=== PATIENT | female | born 1980 | race American Indian/Alaskan Native ===

== ENCOUNTER 2016-09-22 10:32 | Inpatient (IN) | payer MEDICAID ==
[2016-09-22] MEDS ORDERED: BICITRA PO ONE (11:45)
[2016-09-22] MEDS ORDERED: PEPCID IV ONE (11:45)
[2016-09-22] MEDS ORDERED: REGLAN IV ONE (11:45)
[2016-09-22] MEDS ORDERED: PITOCin/NS 20 UNIT/1000ML DRIP 1,000 ML IV NR (12:00)
--- NOTE | 2016-09-22 12:35 | History and Physical Report ---
History of Present Illness Date of examination: 09/22/16 Date of admission: 09/22/16 10:32 Chief complaint: Repeat C Section History of present illness: Pt is a 36yo BF EDC 10/05/16; EGA 38 1/7weeks presents from [facility] for a repeat C Section due to Preeclampsia. She was seen at [facility] today with BP's 136/ 100 and repeat of 142/80. She has a history of Preeclampsia and Previous C Section x 3. She [facility] at [facility] [place] [facility] since 17 weeks and course has been complicated by AMA and Morbid Obesity. records are available but GBS is unknown. Past History Past Medical History: other (Morbid Obesity) Past Surgical History: section (x3) Family/Genetic History: diabetes, hypertension, stroke Social history: no significant social history, - Obstetrical History Expected Date of Delivery: 10/05/16 Actual Gestation: 38 Week(s) 1 Day(s) : 4 Medications and Allergies Allergies Allergy/AdvReac Type Severity Reaction Status Date / Time No Known Allergies Allergy Verified 08/29/16 11:15 Home Medications Medication Instructions Recorded Confirmed Last Taken Type Aspirin [Aspirin BABY CHEW TAB] 81 mg PO QDAY 08/29/16 08/29/16 08/29/16 History Vit No.130/Iron/FA 1 each PO QDAY 08/29/16 08/29/16 08/29/16 History [ Tablet] Ferrous Sulfate [Feosol 325 MG tab] 325 mg PO BID #60 tablet 09/22/16 Unknown Rx HYDROcodone/APAP 5-325 [[place] 1 each PO Q6HR PRN #30 tablet 09/22/16 Unknown Rx 5/325] Ibuprofen [Motrin] 800 mg PO Q8HR PRN #30 tablet 09/22/16 Unknown Rx Vit W-Ca,Fe,FA(<1 mg) 1 each PO DAILY #30 tablet 09/22/16 Unknown Rx [ Vitamins] Active Meds: Active Medications Lactated Ringer's (Lactated Ringers) 1,000 mls @ 2,250 mls/hr IV PREOP NR Stop: 09/23/16 12:27 Oxytocin/Sodium Chloride (Pitocin/Ns 20 Unit/1000ml Drip) 1,000 mls @ 0 mls/hr IV TITR NR PRN Reason: Per Protocol Stop: 09/22/16 23:59 Review of Systems All systems: negative - Vital Signs Vital signs: Vital Signs Pulse Pulse Ox 77 100 09/22/16 11:42 09/22/16 11:42 Temp Pulse Resp BP Pulse Ox 97.3 F L 82 20 129/70 99 09/22/16 11:47 09/22/16 12:27 09/22/16 11:47 09/22/16 12:19 09/22/16 12:27 - Physical Exam Breasts: Positive: deferred Cardiovascular: Regular rate Lungs: Positive: Clear to auscultation Abdomen: Positive: normal appearance, soft Genitourinary (Female): Positive: normal external genitalia Uterus: Positive: enlarged Extremities: Positive: normal - Obstetrical FHR: category 1 Uterine Contraction Monitor Mode: External Results Result Diagrams: 09/22/16 13:40 All other labs normal. Ultrasound: report reviewed Assessment and Plan - Patient Problems (1) Previous delivery affecting Diagnosis Date: 09/22/16 Current Visit: Yes Status: Acute (2) Pre-eclampsia Diagnosis Date: 09/22/16 Current Visit: Yes Status: Acute (3) 38 weeks gestation of Diagnosis Date: 09/22/16 Current Visit: Yes Status: Acute Plan to address problem: A: IUP @ 38 1/7 weeks Preeclampsia Previous C Section x 3 Morbid Obesity P: Admit to L&D for Repeat C Section #4 Obtain PIH labs
--- NOTE | 2016-09-22 12:51 | Anesthesia Consultation ---
Anesthesia Consult and Med Hx Date of service: 09/22/16 - Airway Anesthetic Teeth Evaluation: Good ROM Head & Neck: Adequate Mental/Hyoid Distance: Adequate Mallampati Class: Class II Intubation Access Assessment: Probably Good - Pulmonary Exam CTA: Yes - Cardiac Exam Cardiac Exam: RRR - Pre-Operative Health Status ASA Pre-Surgery Classification: ASA3, Emergency Proposed Anesthetic Plan: Epidural, Spinal - Pulmonary Hx Asthma: No COPD: No Hx Pneumonia: No - Cardiovascular System Hx Hypertension: Yes (PIH) - Central Nervous System Hx Seizures: No Hx Psychiatric Problems: No - Endocrine Hx Renal Disease: No Hx End Stage Renal Disease: No Hx Hypothyroidism: No Hx Hyperthyroidism: No - Hematic Hx Anemia: No Hx Sickle Cell Disease: No - Other Systems Hx Alcohol Use: No Hx Obesity: Yes (morbid)
--- NOTE | 2016-09-22 12:52 | Anesthesia Day of Surgery ---
Anesthesia Day of Surgery - Day of Surgery Patient Examined: Yes Patient H&P Reviewed: Yes Patient is NPO: (FSP)
[2016-09-22 13:49] LABS: Basophils % (Auto) 0.9 % (0.0-1.8); Eosinophils % (Auto) 1.2 % (0.0-4.3); Hematocrit 36.9 % (30.3-42.9); Hemoglobin 12.2 gm/dl (10.1-14.3); Mean Corpuscular HGB Conc 33 % (30-34); Mean Corpuscular Hemoglobin 28 pg (28-32); Mean Corpuscular Volume 83 fl (79-97); Platelet Count 188 K/mm3 (140-440); Red Blood Count 4.43 M/mm3 (3.65-5.03); Red Cell Distribution Width 14.5 % (13.2-15.2); White Blood Count 12.4 K/mm3 (4.5-11.0)
[2016-09-22] MEDS ORDERED: ANCEF/STERILE WATER 2 GM/20 ML 20 ML IV NR (15:00)
[2016-09-22] MEDS ORDERED: TORADOL ONE (15:15)
[2016-09-22] MEDS: LACTATED RINGERS 1,000 ML IV NR ×2 (15:19→15:20)
[2016-09-22] MEDS ORDERED: WATER FOR IRRIG STERILE IR ONE (15:35)
[2016-09-22] MEDS ORDERED: ANCEF/STERILE WATER 2 GM/20 ML IV ONE (15:35)
[2016-09-22] MEDS ORDERED: NACL 0.9% IR ONE (15:35)
[2016-09-22] MEDS ORDERED: MORPHINE ONE (15:38)
[2016-09-22] MEDS ORDERED: XYLOCAINE MPF 2% ONE (15:38)
[2016-09-22] MEDS ORDERED: PHENERGAN PO PRN (16:00)
[2016-09-22] MEDS ORDERED: DILAUDID IV PRN ×2 (16:00)
[2016-09-22] MEDS ORDERED: PHENERGAN PR PRN (16:00)
[2016-09-22] MEDS ORDERED: NARCAN 0.4 MG/1 ML IV PRN ×2 (16:00→16:38)
[2016-09-22] MEDS ORDERED: ZOFRAN IV PRN (16:00)
[2016-09-22] MEDS ORDERED: LACTATED RINGERS 1,000 ML ONE (16:21)
--- NOTE | 2016-09-22 16:35 | Operative Report ---
Operative Report Operative Report: Date of procedure: 09/22/2016 Pre-operative diagnosis: 1. Intrauterine at 38-1/7 weeks 2. Previous section 3 3. Preeclampsia 4. Morbid obesity Post-operative diagnosis: Same Procedure name(s): Repeat low transverse section Surgeon: Kip Sanford MD Rehab Director: None Anesthesia: Spinal anesthesia by Dr. Whitehead EBL: 700 mL's Findings: A 3194 g male infant Apgars 8 at 1 minute 9 at 5 minutes. Clear amniotic fluid. Normal uterus. Normal tubes and ovaries bilaterally Procedure: After the patient was prepped and draped in usual sterile fashion, and after satisfactory level of epidural anesthesia was obtained, the skin knife was used to make a transverse skin incision through the previous skin scar. The incision was excised down to layer of the fascia, which was nicked in the midline and extended laterally using the Bovie cautery. The rectus muscles were dissected off the rectus fascia both superiorly and inferiorly. The rectus bellies in the midline, and the peritoneum was entered under direct visualization. The peritoneal incision was extended superiorly and inferiorly. A bladder flap was created and the bladder blade was then placed. The uterus was scored in a curvilinear linear fashion, entered in the midline revealing clear amniotic fluid. The 's head was delivered onto the surgical field, and the oropharynx and nasopharynx were bulb suctioned. The rest of the infant's body was delivered, cord was doubly clamped and cut and the was handed to the waiting respiratory team. The placenta was manually removed from the uterus, and the uterus removed from its normal anatomical position. After gentle uterine lavage, the incision was inspected and found to be without extensions. It was then closed in 2 layers using 0 Vicryl suture in a running interlocking fashion, the second layer imbricating the first. After good hemostasis was achieved, copious amounts or irrigation was performed, and the gutters were suctioned free of blood and blood clots. The Tisseel sealant was sprayed across the uterine incision. The uterus was then returned to its normal anatomical position, and after excellent hemostasis assured, the peritoneum was reapproximated using 3-0 Vicryl suture in a running interlocking fashion, and then the rectus muscles were reapproximated using 3-0 Vicryl suture in a [id number] configuration. The fascia was then reapproximated using 0 Vicryl suture in running interlocking fashion. The subcutaneous layer was made hemostatic using Bovie cautery, the Tisseel sealant was sprayed across the fascial incision and the skin edges reapproximated using 4-0 Vicryl suture in a subcuticular fashion. Patient tolerated the procedure well was transported to recovery in stable condition.
[2016-09-22] MEDS ORDERED: SENOKOT PO PRN (16:38)
[2016-09-22] MEDS ORDERED: MYLICON PO PRN (16:38)
[2016-09-22] MEDS ORDERED: TYLENOL PO PRN (16:38)
[2016-09-22] MEDS ORDERED: NORCO 5/325 PO PRN (16:38)
[2016-09-22] MEDS ORDERED: LANSINOH TP PRN (16:38)
[2016-09-22] MEDS ORDERED: TUCKS PAD TP PRN (16:38)
[2016-09-22] MEDS ORDERED: MILK OF MAGNESIA PO PRN (16:38)
--- NOTE | 2016-09-22 16:45 | Post Anesthesia Evaluation ---
- Post Anesthesia Evaluation Patient Participated: Yes Airway Patent: Yes Stable Respiratory Function: Yes Temp > 96.8F: Yes Pain Manageable: Yes Adequeate Hydration: Yes Anesthesia Complications: No Block Receding Appropriately: Yes
[2016-09-22] MEDS ORDERED: SODIUM CHLORIDE FLUSH SYRINGE 10 ML IV SCH (17:00)
[2016-09-22] MEDS ORDERED: D5LR 1,000 ML IV SCH (17:00)
[2016-09-22] MEDS ORDERED: PITOCin/NS 20 UNIT/1000ML DRIP 1,000 ML IV SCH (17:00)
[2016-09-22] MEDS ORDERED: MAGNESIUM SULFATE 40GM/1000ML 1,000 ML IV SCH (18:00)
[2016-09-22] MEDS: TORADOL IV PRN (19:48)
[2016-09-22] MEDS: BENADRYL IV PRN (20:46)
[2016-09-22] MEDS: ANCEF/NS 1 GM/50 ML 50 ML IV SCH (23:41)
[2016-09-23] MEDS: TORADOL IV PRN ×3 (02:36→15:00)
[2016-09-23] MEDS: BENADRYL IV PRN ×3 (02:36→21:59)
[2016-09-23] MEDS: PERCOCET 5/325 PO PRN ×2 (05:35→21:54)
[2016-09-23 05:52] LABS: Hematocrit 33.8 % (30.3-42.9); Hemoglobin 11.3 gm/dl (10.1-14.3)
[2016-09-23] MEDS: ANCEF/NS 1 GM/50 ML 50 ML IV SCH (08:00)
--- NOTE | 2016-09-23 09:35 | Progress Note ---
Assessment and Plan A: PPD #1 -stable P: Continued post op care Subjective - Subjective Date of service: 09/23/16 Principal diagnosis: Repeat , HTN Patient reports: appetite normal, pain well controlled [place]: doing well Objective - Vital Signs Latest vital signs: Vital Signs Temp Pulse Pulse Resp BP BP BP 09/23/16 08:14 97.7 F 84 20 112/63 09/23/16 06:58 98.4 F 68 18 120/68 09/23/16 04:45 98.6 F 72 20 112/64 09/23/16 02:30 98.7 F 81 18 115/59 09/23/16 00:40 98.8 F 62 18 114/72 09/22/16 22:30 98 F 74 20 124/75 09/22/16 20:25 98.8 F 77 18 120/70 09/22/16 20:00 98.8 F 77 18 120/70 09/22/16 18:30 98.9 F 61 20 135/77 09/22/16 17:38 65 21 121/65 09/22/16 17:25 67 21 117/73 09/22/16 17:10 64 16 117/62 09/22/16 16:55 63 21 115/62 09/22/16 16:40 69 22 120/73 09/22/16 16:36 72 20 113/65 09/22/16 16:30 67 21 120/62 09/22/16 16:27 68 20 116/61 09/22/16 15:02 84 09/22/16 14:57 75 09/22/16 14:52 82 09/22/16 14:49 75 129/68 09/22/16 14:47 74 09/22/16 14:42 72 09/22/16 14:37 72 09/22/16 14:32 74 09/22/16 14:27 76 09/22/16 14:22 74 09/22/16 14:19 71 123/61 09/22/16 14:17 74 09/22/16 14:12 81 09/22/16 14:09 78 123/62 09/22/16 14:07 69 09/22/16 14:02 78 09/22/16 13:57 83 09/22/16 13:52 09/22/16 13:37 75 09/22/16 13:32 76 09/22/16 13:27 72 09/22/16 13:22 72 09/22/16 13:17 79 09/22/16 13:12 66 09/22/16 13:07 86 09/22/16 13:02 76 09/22/16 12:57 85 09/22/16 12:52 77 09/22/16 12:51 76 135/67 09/22/16 12:47 80 09/22/16 12:42 77 09/22/16 12:37 83 09/22/16 12:32 84 09/22/16 12:27 82 09/22/16 12:19 75 129/70 09/22/16 12:17 71 09/22/16 12:12 78 09/22/16 12:07 83 09/22/16 12:02 77 09/22/16 11:57 80 09/22/16 11:52 73 09/22/16 11:48 73 134/87 09/22/16 11:47 97.3 F L 83 77 20 134/87 09/22/16 11:42 77 Pulse Ox 09/23/16 08:14 09/23/16 06:58 09/23/16 04:45 09/23/16 02:30 09/23/16 00:40 09/22/16 22:30 09/22/16 20:25 09/22/16 20:00 09/22/16 18:30 09/22/16 17:38 98 09/22/16 17:25 98 09/22/16 17:10 98 09/22/16 16:55 97 09/22/16 16:40 97 09/22/16 16:36 97 09/22/16 16:30 97 09/22/16 16:27 97 09/22/16 15:02 98 09/22/16 14:57 98 09/22/16 14:52 97 09/22/16 14:49 92 09/22/16 14:47 99 09/22/16 14:42 98 09/22/16 14:37 97 09/22/16 14:32 98 09/22/16 14:27 98 09/22/16 14:22 97 09/22/16 14:19 09/22/16 14:17 97 09/22/16 14:12 98 09/22/16 14:09 09/22/16 14:07 97 09/22/16 14:02 97 09/22/16 13:57 97 09/22/16 13:52 81 L 09/22/16 13:37 99 09/22/16 13:32 99 09/22/16 13:27 98 09/22/16 13:22 99 09/22/16 13:17 99 09/22/16 13:12 98 09/22/16 13:07 100 09/22/16 13:02 99 09/22/16 12:57 98 09/22/16 12:52 99 09/22/16 12:51 09/22/16 12:47 99 09/22/16 12:42 99 09/22/16 12:37 99 09/22/16 12:32 98 09/22/16 12:27 99 09/22/16 12:19 09/22/16 12:17 99 09/22/16 12:12 99 09/22/16 12:07 99 09/22/16 12:02 99 09/22/16 11:57 99 09/22/16 11:52 99 09/22/16 11:48 09/22/16 11:47 99 09/22/16 11:42 100 Intake and Output 09/22/16 09/23/16 09/23/16 22:59 06:59 14:59 Intake Total 2555 2130 600 Output Total 1100 2200 800 Balance 1455 -70 -200 Intake: IV 2075 1050 Ancef/Ns 1 gm/50 ml 50 ml 50 @ 100 mls/hr IV Q8H EILEEN Rx#:[id number] D5lr 1,000 ml @ 125 mls/ 150 hr IV DIRECT EILEEN Rx#: [id number] Magnesium Sulfate 40Gm/ 100 400 1000ML 1,000 ml @ 2 GM/HR 50 mls/hr IV DIRECT EILEEN Rx#:[id number] PITOCin/NS 20 UNIT/1000ML 475 450 DRIP 1,000 ML @ 250 mls/ hr IV TITR EILEEN Rx#: [id number] Oral 240 Intake, Free Water 480 1080 360 Output: Urine 1100 2200 800 Indwelling Catheter 700 2200 800 Other: Total, Intake Amount 240 Total, Output Amount 700 1400 800 Voiding Method Indwelling Catheter Indwelling Catheter - Exam Breasts: Present: deferred Cardiovascular: Present: Regular rate Lungs: Present: Clear to auscultation Abdomen: Present: normal appearance Vulva: both: normal Uterus: Present: fundal height below umbilicus Extremities: Present: normal Deep Tendon Reflex Grade: Normal +2 Incision: Present: dressed - Labs Labs: Abnormal lab results 09/22/16 Range/Units 13:40 WBC 12.4 H (4.5-11.0) K/mm3 Seg Neutrophils % 73.0 H (40.0-70.0) % Seg Neutrophils # 9.0 H (1.8-7.7) K/mm3
[2016-09-23] MEDS: FEOSOL PO SCH (09:41)
[2016-09-23] MEDS: PRENATAL VITAMIN PO SCH (09:42)
--- NOTE | 2016-09-23 14:29 | Progress Note ---
Subjective Date of service: 09/23/16 Principal diagnosis: Repeat , HTN Interval history: Patient is comfortable. Pain is well controlled with pain meds. Ambulated well. No residual neurological deficit. No anesthesia complications Objective - Constitutional Vitals: Vital Signs - 12hr 09/23/16 09/23/16 09/23/16 02:30 04:45 06:58 Temperature 98.7 F 98.6 F 98.4 F Pulse Rate [ 81 72 68 From Monitor] Respiratory 18 20 18 Rate Blood Pressure 115/59 112/64 120/68 [Left Arm] 09/23/16 09/23/16 09/23/16 08:00 08:14 13:33 Temperature 97.7 F 98.8 F Pulse Rate [ 84 86 From Monitor] Respiratory 20 20 20 Rate Blood Pressure 112/63 118/70 [Left Arm] - Labs CBC & Chem 7: 09/23/16 05:35
[2016-09-23] MEDS ORDERED: BOOSTRIX IM ONE (16:41)
[2016-09-23] MEDS ORDERED: M-M-R II VACCINE SUB-Q ONE (17:00)
[2016-09-23] MEDS: MOTRIN PO PRN (21:54)
[2016-09-24] MEDS: MOTRIN PO PRN (04:52)
[2016-09-24] MEDS: PERCOCET 5/325 PO PRN ×2 (04:54→12:05)
--- NOTE | 2016-09-24 11:52 | Progress Note ---
Assessment and Plan A; POD# 2 P: Discharge home today. Subjective - Subjective Date of service: 09/24/16 Principal diagnosis: Repeat , HTN Patient reports: appetite normal, pain well controlled : doing well Objective - Vital Signs Latest vital signs: Vital Signs Temp Pulse Resp BP 09/24/16 09:00 97.9 F 70 22 147/83 09/24/16 04:30 98.1 F 71 20 140/88 09/24/16 00:35 97.9 F 82 20 135/89 09/23/16 21:15 98.2 F 90 20 144/87 09/23/16 16:00 98.2 F 69 20 127/64 09/23/16 15:00 20 09/23/16 13:33 98.8 F 86 20 118/70 Intake and Output 09/23/16 09/24/16 09/24/16 22:59 06:59 14:59 Intake Total 600 240 680 Output Total 1400 350 Balance -800 -110 680 Intake: Oral 120 120 680 Intake, Free Water 480 120 Output: Urine 1400 350 Indwelling Catheter 0 Void 1400 350 Other: Total, Intake Amount 120 120 680 Total, Output Amount 200 150 Voiding Method Toilet Toilet # Voids Indwelling Catheter 0 Void 3 1 1 # Bowel Movements 1 - Exam Breasts: Present: deferred Cardiovascular: Present: Regular rate Abdomen: Present: normal appearance Vulva: both: normal Uterus: Present: fundal height below umbilicus Extremities: Present: normal Deep Tendon Reflex Grade: Normal +2 Incision: Present: intact
--- NOTE | 2016-09-24 11:56 | Discharge Summary ---
Providers - Providers Date of Admission: 09/22/16 10:32 Date of discharge: 09/24/16 Attending physician: RUTH PARISI MD Primary care physician: RUTH PARISI MD Hospitalization Reason for admission: section, other (preeclampsia) Procedure: section Episiotomy: none Laceration: none Incision: intact Other procedures: none complications: none Discharge diagnosis: IUP at term delivered baby: male Condition at discharge: Good Disposition: DISCHARGED TO HOME OR SELFCARE Plan - Discharge Medications Prescriptions: Ferrous Sulfate [Feosol 325 MG tab] 325 mg PO BID #60 tablet HYDROcodone/APAP 5-325 [[place] 5/325] 1 each PO Q6HR PRN #30 tablet PRN Reason: Pain Ibuprofen [Motrin] 800 mg PO Q8HR PRN #30 tablet PRN Reason: Moder Pain Unrelieved By [place] Vit W-Ca,Fe,FA(<1 mg) [ Vitamins] 1 each PO DAILY #30 tablet - Provider Discharge Summary Activity: routine, no sex for 6 weeks, no heavy lifting 4 weeks, no strenuous exercise Diet: routine Instructions: routine Additional instructions: [] Smoking cessation referral if applicable(refer to patient education folder for contact #) [] Refer to [facility] Booklet Call your doctor immediately for: * Fever > 100.5 * Heavy vaginal bleeding ( >1 pad per hour) * Severe persistent headache * Shortness of breath * Reddened, hot, painful area to leg or breast * Drainage or odor from incision. * Keep incision clean and dry at all times and follow doctor's instructions regarding bathing/showering - Follow up plan Follow up: [facility] [Provider Group] - 7 Days
[2016-09-24] MEDS: PRENATAL VITAMIN PO SCH (12:44)
[2016-09-24] MEDS: FEOSOL PO SCH (12:45)
[2016-09-24 14:09] VITALS: BP 152/82
== END 2016-09-24 15:15 | disposition home or self-care (01) | DRG 765 ==
LOC: APU 10:32 → OB 18:06
PROVIDERS: ADMIT Obstetrics & Gynecology; ATTEND Obstetrics & Gynecology
PROC: 10D00Z1 Extraction of Products of Conception, Low, Open Approach (ICD-10-PCS; principal; 2016-09-22)
DX: O11.4 Pre-existing hypertension with pre-eclampsia, complicating childbirth (principal); Z68.41 Body mass index [BMI] 40.0-44.9, adult; O34.219 Maternal care for unspecified type scar from previous cesarean delivery; O99.214 Obesity complicating childbirth; E66.01 Morbid (severe) obesity due to excess calories; Z3A.38 38 weeks gestation of pregnancy; Z37.0 Single live birth
CPT/HCPCS: 36415; 85014; 85018; 85025; 86850; 86900; 86901; J0690; J1200; J1885; J2270; J2590; J2765; J3475; J7120; J7121

== ENCOUNTER 2021-03-12 23:39 | Emergency (ER) | payer MEDICAID ==
[2021-03-13 00:35] LABS: Basophils # (Auto) 0.1 K/mm3 (0.0-0.1); Basophils % (Auto) 0.7 % (0.0-1.8); Eosinophils # (Auto) 0.4 K/mm3 (0.0-0.4); Eosinophils % (Auto) 2.5 % (0.0-4.3); Hematocrit 41.5 % (30.3-42.9); Hemoglobin 13.5 gm/dl (10.1-14.3); Lymphocytes # (Auto) 3.2 K/mm3 (1.2-5.4); Lymphocytes % (Auto) 19.5 % (13.4-35.0); Mean Corpuscular HGB Conc 33 % (30-34); Mean Corpuscular Volume 83 fl (79-97); Monocytes # (Auto) 0.9 K/mm3 (0.0-0.8); Monocytes % (Auto) 5.3 % (0.0-7.3); Platelet Count 253 K/mm3 (140-440); Red Blood Count 5.01 M/mm3 (3.65-5.03); Red Cell Distribution Width 15.4 % (13.2-15.2)
[2021-03-13 00:56] LABS: Bacteria,Urine 2+ /HPF (Negative); Bilirubin,Urine NEG (Negative); Blood,Urine LG (Negative); Color,Urine Amber (Yellow); Mucus,Urine FEW /HPF; Urobilinogen,Urine < 2.0 mg/dL (<2.0)
[2021-03-13 00:57] LABS: Alanine Aminotransferase 10 units/L (7-56); Albumin 4.1 g/dL (3.9-5); Blood Urea Nitrogen 7 mg/dL (7-17); Calcium 9.1 mg/dL (8.4-10.2); Hemolysis Index 4
[2021-03-13 00:58] LABS: WBC,Urine > 182.0 /HPF (0.0-6.0)
[2021-03-13 00:59] LABS: BUN/Creatinine Ratio 10
[2021-03-13] MEDS ORDERED: SODIUM CHLORIDE 0.9% 1000 ML 1,000 ML IV ONE (02:27)
[2021-03-13] MEDS ORDERED: KETOROLAC 30 MG/1 ML INJ IV ONE (02:27)
[2021-03-13] MEDS ORDERED: cefTRIAXone/NS 1 GM/50 ML 1 GM/50 ML BAG IV ONE (02:28)
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
[2021-03-13] MEDS ORDERED: ONDANSETRON 4 MG ODT TAB PO ONE (02:35)
[2021-03-13] MEDS ORDERED: MORPHINE 4 MG/1 ML INJ IV ONE (02:35)
[2021-03-13 04:15] VITALS: BP 189/84
== END 2021-03-13 05:20 | disposition home or self-care (01) ==
LOC: ED 23:39
DX: N12 Tubulo-interstitial nephritis, not specified as acute or chronic (principal); I10 Essential (primary) hypertension; F17.200 Nicotine dependence, unspecified, uncomplicated; Z98.890 Other specified postprocedural states; Z79.1 Long term (current) use of non-steroidal anti-inflammatories (NSAID); Z79.2 Long term (current) use of antibiotics; Z79.899 Other long term (current) drug therapy
CPT/HCPCS: 36415; 80053; 81001; 84703; 85025; 87086; 96365; 96375; 99283; J0696; J1885; J2270; J7030; Q0162

== ENCOUNTER 2021-03-24 19:23 | Emergency (ER) | payer MEDICAID ==
[2021-03-24 19:48] VITALS: BP 167/103
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
== END 2021-03-25 00:15 | disposition home or self-care (01) ==
LOC: ED 19:23
DX: F41.9 Anxiety disorder, unspecified (principal); F32.9 Major depressive disorder, single episode, unspecified; Z76.0 Encounter for issue of repeat prescription; I10 Essential (primary) hypertension; F17.200 Nicotine dependence, unspecified, uncomplicated; Z98.890 Other specified postprocedural states; Z79.1 Long term (current) use of non-steroidal anti-inflammatories (NSAID); Z79.899 Other long term (current) drug therapy
CPT/HCPCS: 99282

== ENCOUNTER 2021-06-17 19:40 | Emergency (ER) | payer MEDICAID ==
[2021-06-17] MEDS ORDERED: FAMOTIDINE 20 MG/2 ML INJ IV ONE (20:59)
[2021-06-17] MEDS ORDERED: SODIUM CHLORIDE 0.9% 1000 ML 1,000 ML IV ONE (20:59)
[2021-06-17] MEDS ORDERED: ONDANSETRON 4 MG/2 ML INJ IV ONE (20:59)
[2021-06-17] MEDS ORDERED: MORPHINE 4 MG/1 ML INJ IV ONE (21:05)
[2021-06-17 21:26] LABS: Basophils # (Auto) 0.1 K/mm3 (0.0-0.1); Basophils % (Auto) 0.4 % (0.0-1.8); Eosinophils % (Auto) 0.2 % (0.0-4.3); Hematocrit 49.5 % (30.3-42.9); Lymphocytes # (Auto) 1.5 K/mm3 (1.2-5.4); Lymphocytes % (Auto) 11.4 % (13.4-35.0); Mean Corpuscular HGB Conc 34 % (30-34); Mean Corpuscular Volume 84 fl (79-97); Monocytes % (Auto) 7.3 % (0.0-7.3); Platelet Count 187 K/mm3 (140-440); Red Blood Count 5.89 M/mm3 (3.65-5.03)
[2021-06-17 22:02] LABS: Alanine Aminotransferase 28 units/L (7-56); Albumin 4.8 g/dL (3.9-5); BUN/Creatinine Ratio 14; Blood Urea Nitrogen 14 mg/dL (7-17); Calcium 9.8 mg/dL (8.4-10.2); Hemolysis Index 15
--- NOTE | 2021-06-17 22:11 | XRay Report ---
CHEST 2 VIEWS INDICATION / CLINICAL INFORMATION: cough, fever. COMPARISON: None available. FINDINGS: SUPPORT DEVICES: None. HEART / MEDIASTINUM: No significant abnormality. LUNGS / PLEURA: No significant pulmonary or pleural abnormality. No pneumothorax. ADDITIONAL FINDINGS: No significant additional findings. IMPRESSION: 1. No acute findings. Signer Name: Dennis Harrington DO Signed: 06/17/2021 10:06 PM Workstation Name: [id number]
--- NOTE | 2021-06-17 23:53 | Cat Scan Report ---
CT ABDOMEN AND PELVIS WITH IV CONTRAST INDICATION: Pt complains of right lower quadrant abdominal pain: Covid-19 +. COMPARISON: None available. TECHNIQUE: Axial CT images were obtained through the abdomen and pelvis after 100 mL Omnipaque [address] scans at this location are performed using CT dose reduction for ALARA by means of automated e xposure control. FINDINGS -- ABDOMEN: Lung Bases: Patchy atypical pneumonia within both lower lungs consistent with known Covid diagnosis. Liver: Normal. Gallbladder: Normal. Bile Ducts: Normal. Pancreas: Normal. Spleen: Normal. Adrenals: Normal. Right Kidney and Proximal Ureter: Normal. Left Kidney and Proximal Ureter: Normal. Stomach and Bowel: Normal. Lymph Nodes: No significant adenopathy. Aorta: Scattered atherosclerotic calcification of the infrarenal abdominal aorta.. IVC: Normal. Additional Findings: None. FINDINGS -- PELVIS: Urinary Bladder and Distal Ureters: Normal. Reproductive Organs: Intrauterine device noted.. Appendix: Unremarkable without periappendiceal inflammation. The appendix is mostly collapsed and par tially air-filled.. Bowel: No acute abnormality. Free Fluid: None. Lymph Nodes: No significant adenopathy. Additional Findings: Tiny periumbilical fat-containing hernia.. Skeletal System: Severe arthrosis involving this site joints and pubic symphysis.. IMPRESSION: 1. Atypical pneumonia within the lower lungs 2. No definite CT evidence of acute appendicitis. Signer Name: Juan Carlos Leone MD Signed: 06/17/2021 11:49 PM Workstation Name: [id number]
[2021-06-18 00:47] LABS: Bilirubin,Urine NEG (Negative); Blood,Urine NEG (Negative); Color,Urine Yellow (Yellow); Protein,Urine <15 mg/dL mg/dL (Negative); Urobilinogen,Urine < 2.0 mg/dL (<2.0)
[2021-06-18] MEDS ORDERED: AZITHROMYCIN 250 MG TAB PO ONE (00:54)
[2021-06-18] MEDS ORDERED: cefTRIAXone/NS 1 GM/50 ML 1 GM/50 ML BAG IV ONE (00:54)
[2021-06-18] MEDS ORDERED: MORPHINE 4 MG/1 ML INJ ONE (01:10)
[2021-06-18] MEDS ORDERED: FAMOTIDINE 20 MG/2 ML INJ IV ONE (01:12)
[2021-06-18] MEDS ORDERED: ONDANSETRON 4 MG/2 ML INJ ONE (01:12)
[2021-06-18] MEDS ORDERED: SODIUM CHLORIDE 0.9% 1000 ML 1,000 ML ONE (01:19)
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
[2021-06-18] MEDS ORDERED: LIDOCAINE-MPF (1%) 10 MG/1 ML VIAL 5 ML INFILTRATI ONE (03:34)
[2021-06-18] MEDS ORDERED: AZITHROMYCIN 250 MG TAB ONE (03:39)
[2021-06-18 04:01] VITALS: BP 138/92
== END 2021-06-18 03:50 | disposition home or self-care (01) ==
LOC: ED 19:40
DX: U07.1 COVID-19 (principal); J12.82 Pneumonia due to coronavirus disease 2019; R11.2 Nausea with vomiting, unspecified; R19.7 Diarrhea, unspecified; J18.8 Other pneumonia, unspecified organism; I10 Essential (primary) hypertension; Z98.890 Other specified postprocedural states; F17.200 Nicotine dependence, unspecified, uncomplicated
CPT/HCPCS: 36415; 71046; 74177; 80053; 81001; 83690; 84703; 85025; 96361; 96372; 96374; 96375; 99285; J0696; J2270; J2405; J7030; Q9967

== ENCOUNTER 2021-12-03 01:44 | Emergency (ER) | payer MEDICAID ==
[2021-12-03 02:10] VITALS: BP 151/91
[2021-12-03] MEDS ORDERED: dexAMETHasone 4 MG/ML VIAL IM ONE (07:53)
--- NOTE | 2021-12-03 07:56 | Emergency Department Report ---
ED Back Pain/Injury HPI - General Chief Complaint: Back Pain/Injury Stated Complaint: MUSCLE SPASM Time Seen by Provider: 12/03/21 07:50 Source: patient Limitations: No Limitations - History of Present Illness Initial Comments: Patient is a pleasant 41-year-old obese female that comes to the emergency room complaining of low back pain and tightness. It radiates to her right leg. She has a history of herniated disc and from time to time has flares. She states that this flare was triggered by lifting at work. She has no signs and symptoms of cauda equina. She is ambulatory to the ER no acute distress. She also adds that she thinks the stress that she is under given her living situation is making her tense and causing her muscles to tighten. She states that working is definitely making this pain worse. Patient neurovascularly intact. She denies any trauma, fall, car wreck or any other new injury. Patient denies any abdominal pain. No nausea vomiting or diarrhea. No chest pain or shortness of breath. No dysuria. No vaginal discharge or bleeding. This is her usual back pain. MD Complaint: back pain -: Gradual Similar Symptoms Previously: Yes Place: home, work Radiation: none Severity: mild Severity scale (0 -10): 3 Quality: aching Consistency: constant Improves With: immobilization Worsens With: movement Associated Symptoms: denies other symptoms - Related Data Home Medications Medication Instructions Recorded Confirmed Last Taken Aspirin [Aspirin BABY CHEW TAB] 81 mg PO QDAY 08/29/16 09/23/16 09/22/16 Vit No.130/Iron/Folic 1 each PO QDAY 08/29/16 09/23/16 09/22/16 [ Tablet] Previous Rx's Medication Instructions Recorded Last Taken Type Ferrous Sulfate [Feosol 325 MG tab] 325 mg PO BID #60 tablet 09/22/16 Unknown Rx Vit Calc,Iron,Folic 1 each PO DAILY #30 tablet 09/22/16 Unknown Rx [ Vitamins] amLODIPine 5 mg PO DAILY 30 Days #30 tab 03/13/21 Unknown Rx ARIPiprazole [Abilify TAB] 2 mg PO DAILY #30 tab 03/24/21 Unknown Rx Cetirizine HCl 10 mg PO DAILY #30 tablet 03/24/21 Unknown Rx Divalproex [Noe Schafer] 500 mg PO BID #60 tablet 03/24/21 Unknown Rx Pantoprazole Sodium 40 mg PO DAILY #30 tablet. 03/24/21 Unknown Rx Sertraline HCl [Zoloft] 100 mg PO DAILY #30 tablet 03/24/21 Unknown Rx busPIRone [Buspar] 10 mg PO BID #60 tab 03/24/21 Unknown Rx Albuterol Sulfate [Proventil Hfa] 1 - 2 puff IH Q6H PRN #1 hfa.aer.ad 06/18/21 Unknown Rx Ascorbic Acid [Vitamin C] 1,000 mg PO Q12H #30 tablet 06/18/21 Unknown Rx Cyclobenzaprine [Flexeril] 10 mg PO TID PRN #10 tablet 12/03/21 Unknown Rx Ibuprofen [Motrin] 800 mg PO Q8HR PRN #30 tablet 12/03/21 Unknown Rx predniSONE [Deltasone] 20 mg PO DAILY #5 tablet 12/03/21 Unknown Rx Allergies Allergy/AdvReac Type Severity Reaction Status Date / Time No Known Allergies Allergy Verified 08/29/16 11:15 ED Review of Systems ROS: Stated complaint: MUSCLE SPASM Other details as noted in HPI Comment: All other systems reviewed and negative ED Past Medical Hx - Past Medical History HX HERNIATED DISC WITH INTERMITT FLARES Surgical history: no surgical history Psychiatric history: no pertinent history MUSEUM PREPARATOR history: no MUSEUM PREPARATOR history Family history: no significant family history ED Back Pain Physical Exam - Exam General: Vital signs noted. No distress. Alert and acting appropriately. Back/Abdomen: Yes Straight Leg Raise Pain (R), No Abdominal Tenderness, No Perithoracic Tenderness, No Perilumbar Tenderness, No Sacroiliac Tenderness, No Flank Tenderness Neuro: Yes Normal Sensation, Yes Normal DTR's, Yes Normal Gait, No Motor Weakness ED Course Vital Signs 12/03/21 01:58 Temperature 97.9 F Pulse Rate 67 Respiratory 18 Rate Blood Pressure 151/91 O2 Sat by Pulse 98 Oximetry ED Medical Decision Making - Medical Decision Making Vital Signs 12/03/21 01:58 Temperature 97.9 F Pulse Rate 67 Respiratory 18 Rate Blood Pressure 151/91 O2 Sat by Pulse 98 Oximetry Patient medicated for pain in the emergency room. Patient discharged home with discharge plan of care including diet, activity, medications and follow-up. She understands that she should follow-up with PCP for ongoing care and management of her sciatica back concerns. On discharge she is ambulatory neurologically intact. - Differential Diagnosis AC SCIATICA - BACK PAIN; UTI/STONE Critical care attestation.: If time is entered above; I have spent that time in minutes in the direct care of this critically ill patient, excluding procedure time. ED Disposition Clinical Impression: Sciatica Low back pain Qualifiers: Chronicity: unspecified Sciatica presence: with sciatica Disposition: 01 HOME / SELF CARE / HOMELESS Is pt being admited?: No Does the pt Need Aspirin: No Condition: Stable Instructions: Radicular Pain, Sciatica Additional Instructions: MEDS ORDERED TODAY FOLLOW UP WITH PCP NEXT WEEK IF PAIN PERSISTS REFERRAL BELOW Prescriptions: predniSONE [Deltasone] 20 mg PO DAILY #5 tablet Cyclobenzaprine [Flexeril] 10 mg PO TID PRN #10 tablet PRN Reason: Muscle Spasm Ibuprofen [Motrin] 800 mg PO Q8HR PRN #30 tablet PRN Reason: Pain, Moderate (4-6) Referrals: PRIMARY MD SIENA [Primary Care Provider] - 3-5 Days JEFFREY BAE MD [Staff Physician] - 3-5 Days Forms: Work/School Release Form(ED) Time of Disposition: 07:54
== END 2021-12-03 09:40 | disposition home or self-care (01) ==
LOC: ED 01:44
DX: M54.31 Sciatica, right side (principal)
CPT/HCPCS: 96372; 99282; J1100